=== PATIENT | male | born 1945 ===

== ENCOUNTER 2021-02-11 11:11 | Outpatient (CLI) | payer OTHER | END 2021-02-11 11:28 | disposition home or self-care (01) | LOC: TOM 11:11 | PROVIDERS: ATTEND Specialist | DX: K57.90 Diverticulosis of intestine, part unspecified, without perforation or abscess without bleeding (principal); N40.0 Benign prostatic hyperplasia without lower urinary tract symptoms; I70.8 Atherosclerosis of other arteries ==